=== PATIENT | male | born 1975 | race African-American/Black ===

== ENCOUNTER 2023-09-14 12:58 | Observation (INO) ==
[2023-09-14] MEDS: fentaNYL 100 mcg/2 ml 50 MCG/ML VIAL IV PRN ×2 (11:51→16:07)
[2023-09-14] MEDS: HYDROmorphone 1 MG/1 ML SYRINGE IV PRN ×3 (11:53→14:53)
[~2023-09-14 12:58] MED LIST: Dexamethasone IV 4 MG/ML VIAL 1 ml VIAL ONE; HYDROmorphone 0.5 MG/0.5 ML SYRINGE ONE; HYDROmorphone 1 MG/1 ML SYRINGE ONE; Lidocaine 2% PF 5 ML VIAL ONE; Midazolam 2 mg/2 ml VIAL 1 mg/ml 2 ml VIAL (2 mg) ONE; Naloxone 0.4 mg VIAL 0.4 mg/ml 1 ml VIAL IV PRN; Ondansetron 4 mg VIAL 2 MG/ML 2 ml VIAL ONE; Propofol 10 MG/ML 20 ML BTL ONE; Rocuronium 50 mg VIAL 10 mg/ml 5 ml VIAL (50 mg) ONE; ceFAZolin *3* GM in NS PREMIX 3 GM/100 ML BAG IV ONE; fentaNYL 100 mcg/2 ml 50 MCG/ML VIAL ONE; fentaNYL 250 mcg/5 ml 50 MCG/ML 5 ml VIAL (250 MCG) ONE
[2023-09-14] MEDS ORDERED: HYDROmorphone 1 MG/1 ML SYRINGE ONE (13:55)
[2023-09-14] MEDS ORDERED: Lactulose 30 ml UDC PO PRN (15:36)
[2023-09-14] MEDS ORDERED: Ondansetron 4 mg VIAL 2 MG/ML 2 ml VIAL IV PRN (15:36)
[2023-09-14] MEDS ORDERED: Ondansetron ODT 4 mg TAB 4 MG TAB PO PRN (15:36)
[2023-09-14] MEDS ORDERED: Magnesium Hydroxide LIQ 30 ML UDC PO PRN (15:36)
[2023-09-14] MEDS ORDERED: Labetalol IV 5 MG/ML 20 ml VIAL ONE (16:01)
[2023-09-14] MEDS ORDERED: fentaNYL 100 mcg/2 ml 50 MCG/ML VIAL ONE (16:01)
[2023-09-14] MEDS: Labetalol IV 5 MG/ML 20 ml VIAL IV PUSH ONE (16:04)
[2023-09-14] MEDS: Lactated Ringers 1000 ml BAG 1,000 ML IV SCH (17:57)
[2023-09-14] MEDS: Magnesium Hydroxide LIQ 30 ML UDC PO SCH (22:55)
[2023-09-15 05:29] LABS: Hematocrit 42.5 % (38-53); Hemoglobin 13.8 g/dL (13.2-16.3); Mean Platelet Volume 8.6 fL (7.5-11.2); Platelet Count 138 10^3/uL (150-450)
[2023-09-15 06:06] LABS: Calcium 8.6 mg/dL (8.6-10.3); Creatinine, Serum 1.17 mg/dL (0.67-1.17); Potassium 4.1 mmol/L (3.5-5.0); eGFR CKD-EPI 77.9 (>60)
[2023-09-15] MEDS: Vitamin THERAPEUTIC TAB PO SCH (08:20)
[2023-09-15] MEDS: Morphine 2 MG/ML SYRINGE IV PRN (10:03)
[2023-09-15 10:45] VITALS: BP 140/100
== END 2023-09-15 13:30 ==
LOC: OR 12:58 → SSU 12:58
PROVIDERS: ADMIT Orthopaedic Surgery; ATTEND Orthopaedic Surgery